=== PATIENT | female | born 1985 | race Caucasian/White ===

== ENCOUNTER → 2020-06-24 | Outpatient (CLI) | payer OTHER | LOC: US 13:30 | DX: N63.20 Unspecified lump in the left breast, unspecified quadrant (principal) | CPT/HCPCS: 76641-LT ==

== ENCOUNTER → 2020-08-16 | Outpatient (CLI) | payer OTHER | LOC: EXRD 13:00 | DX: D17.23 Benign lipomatous neoplasm of skin and subcutaneous tissue of right leg (principal); R59.9 Enlarged lymph nodes, unspecified | CPT/HCPCS: 76882 ==

== ENCOUNTER → 2021-02-26 | Outpatient (CLI) | payer OTHER ==
[~2021-02-26] VITALS: Ht 172.7 cm; Wt 89.8 kg
== END ==
LOC: EROP 10:47
DX: U07.1 COVID-19 (principal); Z23 Encounter for immunization; J45.909 Unspecified asthma, uncomplicated; E03.9 Hypothyroidism, unspecified
CPT/HCPCS: 96365